=== PATIENT | female | born 1965 | race Caucasian/White ===

== ENCOUNTER 2017-12-10 09:33 | Emergency (ER) | payer BC ==
[~2017-12-10] VITALS: Ht 182.9 cm; Wt 225.0 kg
[~2017-12-10 09:33] MED LIST: ASPI-1265 PO; DESV100T PO; DIVA250T6 PO; METH-350 PO; SOTA80TA69 PO
[2017-12-10 10:05] LABS: BASOPHILS % (AUTO) 0.3 % (0-1); EOSINOPHILS # (AUTO) 0.1 X10'3 (0-0.9); EOSINOPHILS % (AUTO) 1.1 % (0-6); HEMATOCRIT 42.1 % (35.0-45.0); HEMOGLOBIN 14.8 g/dl (12.0-16.0); LYMPHOCYTES # (AUTO) 1.5 X10'3 (1.1-4.8); LYMPHOCYTES % (AUTO) 25.7 % (21-51); MEAN CORPUSCULAR HEMOGLOBIN 35.6 PG (27.0-31.0); MEAN CORPUSCULAR HGB CONC 35.1 % (33.0-36.5); MEAN CORPUSCULAR VOLUME 101.5 FL (78-98); MEAN PLATELET VOLUME 7.4 FL (7.4-10.4); MONOCYTES # (AUTO) 0.3 X10'3 (0-0.9); NEUTROPHILS # (AUTO) 3.8 X10'3 (1.8-7.7); NEUTROPHILS % (AUTO) 66.9 % (42-75); PLATELET COUNT 149 X10'3 (140-440); RED BLOOD COUNT 4.15 X10'6 (4.20-5.60); RED CELL DISTRIBUTION WIDTH 16.2 % (11.5-14.5); WHITE BLOOD COUNT 5.7 X10'3 (4.5-11.0)
[2017-12-10 10:28] LABS: ALANINE AMINOTRANSFERASE 15 U/L (12-78); ALBUMIN 3.4 G/DL (3.4-5.0); ALBUMIN/GLOBULIN RATIO 0.9 (1.1-1.5); ALKALINE PHOSPHATASE 81 IU/L (46-116); ANION GAP 13 (8-16); ASPARTATE AMINO TRANSFERASE 20 U/L (10-37); BILIRUBIN,TOTAL 0.4 MG/DL (0.1-1.0); BLOOD UREA NITROGEN 11 MG/DL (7-18); BUN/CREATININE RATIO 11.7 (6.6-38.0); CALCIUM 9.1 MG/DL (8.5-10.1); CHLORIDE 104 MMOL/L (99-107); CREATININE 0.94 MG/DL (0.40-0.90); GLUCOSE 124 MG/DL (70-104); MAGNESIUM 1.8 MG/DL (1.5-2.4); POTASSIUM 4.3 MMOL/L (3.5-5.1); SODIUM 140 MMOL/L (135-145); TOTAL CARBON DIOXIDE 22.8 MMOL/L (24-32); eGFR 62 ML/MIN
[2017-12-10 11:30] LABS: D-DIMER 0.26 MG/L FEU (0-0.50)
[2017-12-10 12:03] VITALS: BP 120/73
== END 2017-12-10 12:04 | disposition home or self-care (01) ==
LOC: ER 09:34
DX: I48.91 Unspecified atrial fibrillation (principal); R06.02 Shortness of breath; Z90.710 Acquired absence of both cervix and uterus; Z79.82 Long term (current) use of aspirin; Z79.899 Other long term (current) drug therapy
CPT/HCPCS: 36415; 71045; 80053; 83735; 83880; 84484; 85025; 85379; 93005; 99285

== ENCOUNTER 2018-03-27 14:34 | Emergency (ER) | payer BC ==
[~2018-03-27] VITALS: Ht 653.8 cm; Wt 90.0 kg
[~2018-03-27 14:34] MED LIST changes: -SOTA80TA69 PO; +SOTA80TA73 PO
[2018-03-27 15:30] LABS: BASOPHILS % (AUTO) 0.5 % (0-1); EOSINOPHILS # (AUTO) 0.1 X10'3 (0-0.9); HEMATOCRIT 43.6 % (35.0-45.0); HEMOGLOBIN 15.2 g/dl (12.0-16.0); LYMPHOCYTES # (AUTO) 2.3 X10'3 (1.1-4.8); LYMPHOCYTES % (AUTO) 44.3 % (21-51); MEAN CORPUSCULAR HEMOGLOBIN 37.1 PG (27.0-31.0); MEAN CORPUSCULAR HGB CONC 34.9 % (33.0-36.5); MEAN CORPUSCULAR VOLUME 106.2 FL (78-98); MEAN PLATELET VOLUME 7.2 FL (7.4-10.4); MONOCYTES # (AUTO) 0.4 X10'3 (0-0.9); MONOCYTES % (AUTO) 8.3 % (2-12); NEUTROPHILS # (AUTO) 2.4 X10'3 (1.8-7.7); NEUTROPHILS % (AUTO) 45.9 % (42-75); PLATELET COUNT 139 X10'3 (140-440); RED CELL DISTRIBUTION WIDTH 14.8 % (11.5-14.5); WHITE BLOOD COUNT 5.2 X10'3 (4.5-11.0)
[2018-03-27 15:45] LABS: ALANINE AMINOTRANSFERASE 41 U/L (12-78); ALBUMIN 3.5 G/DL (3.4-5.0); ALBUMIN/GLOBULIN RATIO 0.9 (1.1-1.5); ALKALINE PHOSPHATASE 96 IU/L (46-116); ANION GAP 14 (8-16); ASPARTATE AMINO TRANSFERASE 62 U/L (10-37); BILIRUBIN,TOTAL 0.4 MG/DL (0.1-1.0); BLOOD UREA NITROGEN 12 MG/DL (7-18); CALCIUM 8.4 MG/DL (8.5-10.1); CHLORIDE 98 MMOL/L (99-107); CREATININE 0.86 MG/DL (0.40-0.90); GLUCOSE 152 MG/DL (70-104); POTASSIUM 3.6 MMOL/L (3.5-5.1); SODIUM 136 MMOL/L (135-145); TOTAL CARBON DIOXIDE 24.5 MMOL/L (24-32); TOTAL PROTEIN 7.6 G/DL (6.4-8.2); eGFR 69 ML/MIN
[2018-03-27 15:49] LABS: CLARITY,URINE Clear (Clear); GLUCOSE, URINE Negative (Neg); KETONES,URINE Negative (Neg); LEUKOCYTE ESTERASE ,URINE Negative (Neg); NITRITES, URINE Negative (Neg); OCCULT BLOOD,URINE Negative (Neg); PROTEIN,URINE Negative (Neg); UROBILINOGEN,URINE 0.2 E.U/dL (0.2-1.0)
[2018-03-27 15:50] LABS: COLOR,URINE STRAW (Yellow); UA COLLECTION TYPE CLN CATCH MIDSTREAM
[2018-03-27 15:56] LABS: INR 1.1 INR; PARTIAL THROMBOPLASTIN TIME 26 SECONDS (22-32); PROTHROMBIN TIME 10.9 SECONDS (9.0-12.0)
[2018-03-27] MEDS ORDERED: APIX5TAB3 PO (16:03)
[2018-03-27 16:52] VITALS: BP 129/82
== END 2018-03-27 16:55 | disposition home or self-care (01) ==
LOC: ER 14:35
DX: I48.91 Unspecified atrial fibrillation (principal); Z90.710 Acquired absence of both cervix and uterus; Z98.890 Other specified postprocedural states; Z56.0 Unemployment, unspecified; Z79.82 Long term (current) use of aspirin; Z79.899 Other long term (current) drug therapy
CPT/HCPCS: 36415; 70450; 71045; 80053; 81003; 82948; 83735; 85025; 85610; 85730; 86885; 86900; 86901; 93005; 99285

== ENCOUNTER 2019-12-28 14:15 | Outpatient (CLI) | payer BC ==
[~2019-12-28] VITALS: Ht 182.9 cm; Wt 129.3 kg
[~2019-12-28 14:15] MED LIST changes: +DIVA-74 PO; -DIVA250T6 PO
[2019-12-28 14:40] LABS: TOTAL HEMOGLOBIN 16.4 G/dl (12.0-16.0)
[2019-12-28] MEDS ORDERED: albuterol 2.5 MG/3 ML nebule NEB ONE (15:05)
== END 2019-12-28 23:59 | disposition home or self-care (01) ==
LOC: RT 14:15
PROVIDERS: ATTEND Specialist
DX: R06.02 Shortness of breath (principal); Z79.899 Other long term (current) drug therapy
CPT/HCPCS: 85018; 94060; 94727; 94729; 94760

== ENCOUNTER 2021-04-25 13:11 | Observation (INO) | payer BC, OTHER ==
[~2021-04-25] VITALS: Ht 182.9 cm; Wt 131.8 kg
[2021-04-25 13:45] LABS: BASOPHILS % (AUTO) 0.4 % (0-1); EOSINOPHILS # (AUTO) 0.1 X10'3 (0-0.9); EOSINOPHILS % (AUTO) 1.1 % (0-6); HEMATOCRIT 42.5 % (35.0-45.0); HEMOGLOBIN 13.9 g/dl (12.0-16.0); LYMPHOCYTES # (AUTO) 1.9 X10'3 (1.1-4.8); LYMPHOCYTES % (AUTO) 23.7 % (21-51); MEAN CORPUSCULAR HEMOGLOBIN 29.6 PG (27.0-31.0); MEAN CORPUSCULAR HGB CONC 32.7 g/dL (33.0-36.5); MEAN CORPUSCULAR VOLUME 90.6 FL (78-98); MEAN PLATELET VOLUME 8.4 FL (7.4-10.4); MONOCYTES # (AUTO) 0.5 X10'3 (0-0.9); MONOCYTES % (AUTO) 6.9 % (2-12); NEUTROPHILS # (AUTO) 5.3 X10'3 (1.8-7.7); NEUTROPHILS % (AUTO) 67.9 % (42-75); PLATELET COUNT 175 X10'3 (140-440); RED BLOOD COUNT 4.69 X10'6 (4.20-5.60); RED CELL DISTRIBUTION WIDTH 14.6 % (11.5-14.5); WHITE BLOOD COUNT 7.8 X10'3 (4.5-11.0)
[2021-04-25 14:00] LABS: ALANINE AMINOTRANSFERASE 19 U/L (12-78); ALBUMIN 3.2 G/DL (3.4-5.0); ALBUMIN/GLOBULIN RATIO 0.8 (1.1-1.5); ALKALINE PHOSPHATASE 90 IU/L (46-116); ANION GAP 9 (8-16); ASPARTATE AMINO TRANSFERASE 15 U/L (10-37); BILIRUBIN,TOTAL 0.4 MG/DL (0.1-1.0); BLOOD UREA NITROGEN 18 MG/DL (7-18); BUN/CREATININE RATIO 25.7 (6.6-38.0); CALCIUM 8.9 MG/DL (8.5-10.1); CHLORIDE 107 MMOL/L (99-107); GLUCOSE 102 MG/DL (70-104); POTASSIUM 4.2 MMOL/L (3.5-5.1); SODIUM 142 MMOL/L (135-145); TOTAL CARBON DIOXIDE 26.4 MMOL/L (24-32); eGFR 86 ML/MIN
[2021-04-25] MEDS ORDERED: iohexol 350MG/ML 100ml bottle IV ONE (14:54)
[2021-04-25] MEDS ORDERED: acetaminophen 325mg tablet PO PRN (16:20)
[2021-04-25] MEDS ORDERED: nitroGLYCERIN 0.4mg SUBLingual tab SL PRN (16:20)
[2021-04-25] MEDS ORDERED: morphine 2 MG/ML inj. syringe IV PRN ×2 (16:20)
[2021-04-25] MEDS: normal saline 1000ml 1,000 ML IV SCH (16:20)
[2021-04-25] MEDS ORDERED: metoprolol tartrate 1mg/ml inj IV PRN (16:20)
[2021-04-25] MEDS ORDERED: ondansetron/PF 4mg/2ml inj IV PRN (16:20)
[2021-04-25] MEDS ORDERED: regadenoson 0.4mg/5ml syringe IV PRN (16:20)
[2021-04-25] MEDS ORDERED: mag hydrox/Alum hydrox/simeth 30ml oral suspension PO PRN (16:20)
[2021-04-25] MEDS ORDERED: magnesium hydroxide 30ml (MOM) UD suspension PO PRN (16:20)
[2021-04-25] MEDS ORDERED: aminophylline 250mg/10ml inj. IV PRN (16:20)
[2021-04-25] MEDS ORDERED: METO-395 PO (16:28)
[2021-04-25] MEDS ORDERED: DOFE250C4 PO (16:28)
[2021-04-25] MEDS ORDERED: FURO40TA4 PO (16:28)
[2021-04-25] MEDS ORDERED: APIX5TAB3 PO (16:28)
[2021-04-25] MEDS ORDERED: BUPR75TA12 PO (16:28)
[2021-04-25] MEDS ORDERED: POTA20TA19 PO (16:28)
[2021-04-25] MEDS ORDERED: FERR-119 PO (16:28)
[2021-04-25] MEDS ORDERED: DESV100T16 PO (16:28)
[2021-04-25] MEDS ORDERED: VITA-268 PO (16:31)
[2021-04-25] MEDS ORDERED: MAGN500T9 PO (16:31)
[2021-04-25] MEDS ORDERED: IBUP-1985 PO (16:31)
[2021-04-25] MEDS ORDERED: CYAN250010 PO (16:31)
[2021-04-25] MEDS ORDERED: ibuprofen 200mg tablet PO PRN (17:05)
[2021-04-25] MEDS: heparin, porcine 5000 units/ml vial SQ SCH (20:12)
[2021-04-25] MEDS: divalproex 250mg tablet, delayed-release PO SCH (20:18)
[2021-04-25] MEDS: venlafaxine 25mg tablet PO SCH (21:00)
[2021-04-26] VITALS (10 sets, daily range): BP systolic 99–141; BP diastolic 60–83
[2021-04-26 01:10] LABS: BASOPHILS # (AUTO) 0.1 X10'3 (0-0.2); BASOPHILS % (AUTO) 1.1 % (0-1); EOSINOPHILS # (AUTO) 0.1 X10'3 (0-0.9); EOSINOPHILS % (AUTO) 1.6 % (0-6); HEMATOCRIT 41.3 % (35.0-45.0); HEMOGLOBIN 13.8 g/dl (12.0-16.0); LYMPHOCYTES # (AUTO) 2.9 X10'3 (1.1-4.8); LYMPHOCYTES % (AUTO) 35.7 % (21-51); MEAN CORPUSCULAR HEMOGLOBIN 30.1 PG (27.0-31.0); MEAN CORPUSCULAR HGB CONC 33.4 g/dL (33.0-36.5); MEAN CORPUSCULAR VOLUME 90.1 FL (78-98); MEAN PLATELET VOLUME 8.6 FL (7.4-10.4); MONOCYTES # (AUTO) 0.8 X10'3 (0-0.9); MONOCYTES % (AUTO) 9.7 % (2-12); NEUTROPHILS # (AUTO) 4.2 X10'3 (1.8-7.7); NEUTROPHILS % (AUTO) 51.9 % (42-75); PLATELET COUNT 170 X10'3 (140-440); RED BLOOD COUNT 4.58 X10'6 (4.20-5.60); RED CELL DISTRIBUTION WIDTH 15.1 % (11.5-14.5); WHITE BLOOD COUNT 8.1 X10'3 (4.5-11.0)
[2021-04-26 01:23] LABS: ALANINE AMINOTRANSFERASE 18 U/L (12-78); ALBUMIN 3.2 G/DL (3.4-5.0); ALBUMIN/GLOBULIN RATIO 0.8 (1.1-1.5); ALKALINE PHOSPHATASE 80 IU/L (46-116); ANION GAP 11 (8-16); BILIRUBIN,TOTAL 0.5 MG/DL (0.1-1.0); BLOOD UREA NITROGEN 18 MG/DL (7-18); BUN/CREATININE RATIO 26.9 (6.6-38.0); CALCIUM 8.3 MG/DL (8.5-10.1); CHLORIDE 104 MMOL/L (99-107); CREATININE 0.67 MG/DL (0.40-0.90); GLUCOSE 80 MG/DL (70-104); SODIUM 140 MMOL/L (135-145); TOTAL CARBON DIOXIDE 25.3 MMOL/L (24-32); TOTAL PROTEIN 7.1 G/DL (6.4-8.2); eGFR 90 ML/MIN
[2021-04-26] MEDS: metoprolol tartrate 1mg/ml inj IV PRN ×3 (01:24→04:36)
[2021-04-26 01:26] LABS: ASPARTATE AMINO TRANSFERASE 22 U/L (10-37); POTASSIUM 4.3 MMOL/L (3.5-5.1)
[2021-04-26] MEDS: normal saline 1000ml 1,000 ML IV SCH ×3 (02:18→23:03)
--- NOTE | 2021-04-26 07:17 | NUR ---
Patient states she took her own dose of tikosyn at approx 0600 for her afib. Medications documented and taken to pharmacy.
[2021-04-26] MEDS ORDERED: diltiazem 5mg/ml 5ml inj. IV ONE (07:20)
--- NOTE | 2021-04-26 07:20 | NUR ---
Dr. Sanchez updated on pt condition. Afib 110-130. Orders for one time IV cardizem placed.
[2021-04-26] MEDS: venlafaxine 25mg tablet PO SCH ×5 (07:30→21:06)
[2021-04-26] MEDS: furosemide 40mg tablet PO SCH (07:31)
[2021-04-26] MEDS: metoprolol succinate 25mg (24-HOUR) SR. Tablet PO SCH (07:31)
[2021-04-26] MEDS: ferrous sulfate 325mg tablet PO SCH (07:31)
[2021-04-26] MEDS: divalproex 250mg tablet, delayed-release PO SCH ×2 (07:31→19:20)
[2021-04-26] MEDS: cyanocobalamin 500mcg tablet PO SCH (07:31)
[2021-04-26] MEDS: potassium Cl 20 mEq SR tablet PO SCH (07:31)
[2021-04-26] MEDS: heparin, porcine 5000 units/ml vial SQ SCH (07:32)
[2021-04-26] MEDS: buPROPion 75mg tablet PO SCH (07:32)
[2021-04-26] MEDS ORDERED: MAGN100T PO (08:52)
[2021-04-26] MEDS: vitamin B comp w/Vit. C tab 1 TAB TABLET PO SCH (09:33)
--- NOTE | 2021-04-26 14:59 | NUR ---
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 AWAITING PATIENT ARRIVAL.
--- NOTE | 2021-04-26 15:49 | NUR ---
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 THANKS! VIBHA [id number]
[2021-04-26] MEDS ORDERED: diltiazem-NS 100mg/100ml 100 ML IV SCH (16:10)
--- NOTE | 2021-04-26 16:10 | NUR ---
REPORT GIVEN TO LESLEE BASHIR.
--- NOTE | 2021-04-26 16:15 | NUR ---
RECEIVED REPORT FROM VIBHA CAMILO. DURING SKIN ASSESSMENT, PT CONVERTED TO SR. PAGED DR. MUNGUIA FOR UPDATED ORDERS ON MARGE MARTIN. WILL FOLLOW UP.
[2021-04-26] MEDS: apixaban 5mg tablet PO SCH (19:19)
[2021-04-27 02:00] VITALS: BP 111/60
[2021-04-27 06:00] VITALS: BP 120/68
--- NOTE | 2021-04-27 06:03 | NUR ---
Problems reprioritized. Patient report given, questions answered & plan of care reviewed with LESLEE Lai.
[2021-04-27 06:41] LABS: BASOPHILS % (AUTO) 0.6 % (0-1); EOSINOPHILS # (AUTO) 0.2 X10'3 (0-0.9); EOSINOPHILS % (AUTO) 2.5 % (0-6); HEMATOCRIT 37.5 % (35.0-45.0); HEMOGLOBIN 12.6 g/dl (12.0-16.0); LYMPHOCYTES # (AUTO) 2.3 X10'3 (1.1-4.8); LYMPHOCYTES % (AUTO) 36.2 % (21-51); MEAN CORPUSCULAR HEMOGLOBIN 30.1 PG (27.0-31.0); MEAN CORPUSCULAR HGB CONC 33.6 g/dL (33.0-36.5); MEAN CORPUSCULAR VOLUME 89.6 FL (78-98); MEAN PLATELET VOLUME 8.4 FL (7.4-10.4); MONOCYTES # (AUTO) 0.5 X10'3 (0-0.9); MONOCYTES % (AUTO) 8.1 % (2-12); NEUTROPHILS # (AUTO) 3.3 X10'3 (1.8-7.7); NEUTROPHILS % (AUTO) 52.6 % (42-75); PLATELET COUNT 173 X10'3 (140-440); RED BLOOD COUNT 4.19 X10'6 (4.20-5.60); RED CELL DISTRIBUTION WIDTH 14.6 % (11.5-14.5); WHITE BLOOD COUNT 6.2 X10'3 (4.5-11.0)
[2021-04-27 07:16] LABS: ALBUMIN 2.6 G/DL (3.4-5.0); ANION GAP 11 (8-16); BLOOD UREA NITROGEN 15 MG/DL (7-18); BUN/CREATININE RATIO 24.6 (6.6-38.0); CALCIUM 8.2 MG/DL (8.5-10.1); CHLORIDE 109 MMOL/L (99-107); CREATININE 0.61 MG/DL (0.40-0.90); GLUCOSE 98 MG/DL (70-104); POTASSIUM 3.9 MMOL/L (3.5-5.1); SODIUM 143 MMOL/L (135-145); TOTAL CARBON DIOXIDE 23.1 MMOL/L (24-32); eGFR > 90 ML/MIN
[2021-04-27] MEDS: potassium Cl 20 mEq SR tablet PO SCH (07:17)
[2021-04-27] MEDS: ferrous sulfate 325mg tablet PO SCH (07:17)
[2021-04-27] MEDS: furosemide 40mg tablet PO SCH (07:17)
[2021-04-27] MEDS: cyanocobalamin 500mcg tablet PO SCH (07:17)
[2021-04-27] MEDS: apixaban 5mg tablet PO SCH (07:17)
[2021-04-27] MEDS: metoprolol succinate 25mg (24-HOUR) SR. Tablet PO SCH (07:18)
[2021-04-27] MEDS: venlafaxine 25mg tablet PO SCH (07:19)
[2021-04-27] MEDS: divalproex 250mg tablet, delayed-release PO SCH (07:20)
[2021-04-27] MEDS: buPROPion 75mg tablet PO SCH (08:53)
[2021-04-27] MEDS: vitamin B comp w/Vit. C tab 1 TAB TABLET PO SCH (08:53)
[2021-04-27] MEDS: normal saline 1000ml 1,000 ML IV SCH (08:54)
[2021-04-27] MEDS ORDERED: acetaminophen 325mg tablet PO PRN (09:00)
--- NOTE | 2021-04-27 10:15 | NUR ---
DISCHARGE TEACHING DONE. ALL QUESTIONS ANSWERED. COPY OF SIGNED DISCHARGE PAPERWORK IN CHART. IV AND TELE DISCONTINUED. PT GIVEN MEDICATIONS FROM PHARMACY. ALL BELONGINGS WITH PT. PT TAKEN DOWN TO LOBBY TO PRIVATE VEHICLE BY WHEELCHAIR.
== END 2021-04-27 10:13 | disposition home or self-care (01) ==
LOC: ER 13:12 → ED HOLD 16:19 → PCU 3S 04-26 15:05
PROVIDERS: ADMIT Family Medicine; ATTEND Family Medicine
DX: R07.89 Other chest pain (principal); F41.9 Anxiety disorder, unspecified; I48.0 Paroxysmal atrial fibrillation; I24.9 Acute ischemic heart disease, unspecified; I48.91 Unspecified atrial fibrillation; G62.9 Polyneuropathy, unspecified; Z86.73 Personal history of transient ischemic attack (TIA), and cerebral infarction without residual deficits; Z79.899 Other long term (current) drug therapy; Z90.710 Acquired absence of both cervix and uterus
CPT/HCPCS: 36415; 71045; 71275; 78452; 80048; 80053; 83735; 83880; 84484; 85025; 87081; 93005; 93017; 96361; 96372; 96374; 96375; 96376; 99285; A9500; G0378; J1644; J7030; Q9967; J3490

== ENCOUNTER 2024-01-05 12:14 | Day surgery (SDC) | payer BC, OTHER ==
[~2024-01-05] VITALS: Ht 182.9 cm; Wt 144.0 kg
[2024-01-05] VITALS (10 sets, daily range): BP systolic 108–157; BP diastolic 43–97; PULSE 55–112; RESP 12–17; TEMP 98.9; O2SAT 97–100
[~2024-01-05 12:14] MED LIST changes: +APIX5TAB3 PO; -ASPI-1265 PO; +BUPR-297 PO; +CYAN250010 PO; -DESV100T PO; +DESV100T16 PO; +DOFE250C4 PO; +FERR-119 PO; +FURO40TA4 PO; +IBUP-1985 PO; +MAGN100T PO; -METH-350 PO; +METO-395 PO; +POTA-207 PO; -SOTA80TA73 PO; +VITA-268 PO
[2024-01-05] MEDS ORDERED: normal saline 1000ml 1,000 ML IV SCH (12:45)
[2024-01-05] MEDS ORDERED: CHOL200077 PO (13:54)
[2024-01-05] MEDS ORDERED: ONDA4TAB12 PO (13:55)
[2024-01-05] MEDS ORDERED: SUVO20TA PO (13:55)
[2024-01-05] MEDS: MIDAZolam 1mg/ml 10ml vial IV ONE (13:58)
[2024-01-05] MEDS: fentaNYL/PF 50MCG/1 ML 2ML syringe IV ONE (13:58)
[2024-01-05] MEDS ORDERED: MELO-102 PO (14:29)
[2024-01-05] MEDS ORDERED: LISI5TAB22 PO (14:29)
== END 2024-01-05 15:35 | disposition home or self-care (01) ==
LOC: SSTAY O 12:14
PROVIDERS: ATTEND Student in an Organized Health Care Education/Training Program
DX: I48.91 Unspecified atrial fibrillation (principal); I48.92 Unspecified atrial flutter; I11.0 Hypertensive heart disease with heart failure; I50.9 Heart failure, unspecified; E78.00 Pure hypercholesterolemia, unspecified; I42.9 Cardiomyopathy, unspecified; G47.33 Obstructive sleep apnea (adult) (pediatric); F32.A Depression, unspecified; F98.8 Other specified behavioral and emotional disorders with onset usually occurring in childhood and adolescence; G62.9 Polyneuropathy, unspecified; Z85.3 Personal history of malignant neoplasm of breast; Z79.01 Long term (current) use of anticoagulants; Z79.1 Long term (current) use of non-steroidal anti-inflammatories (NSAID); Z79.899 Other long term (current) drug therapy; Z98.890 Other specified postprocedural states
CPT/HCPCS: 92960; 93005; J2250; J3010; J7030; A4620